=== PATIENT | female | born 1965 | race Caucasian/White ===

== ENCOUNTER → 2019-03-19 | Outpatient (CLI) | payer OTHER | LOC: ORTHO 09:06 | PROVIDERS: ATTEND Orthopaedic Surgery | DX: M17.12 Unilateral primary osteoarthritis, left knee (principal); M23.242 Derangement of anterior horn of lateral meniscus due to old tear or injury, left knee; M06.862 Other specified rheumatoid arthritis, left knee; Z90.49 Acquired absence of other specified parts of digestive tract | CPT/HCPCS: 99203 ==

== ENCOUNTER 2019-10-28 23:18 | Emergency (ER) | payer OTHER ==
[~2019-10-28] VITALS: Ht 160 cm; Wt 133.8 kg
[2019-10-28 23:27] VITALS: BP 194/75
--- NOTE | 2019-10-28 23:37 | ED Lower Extremity ---
General Chief Complaint: Lower Extremity Stated Complaint: RIGHT KNEE PAIN Source: patient Exam Limitations: no limitations History of Present Illness Date Seen by Provider: Oct 28, 2019 Time Seen by Provider: 23:22 Initial Comments The patient is a morbidly obese 53-year-old female who presents for evaluation of right knee pain. She says that about 3 months ago she twisted her knee and has been having pain since that time. She never felt or heard a pop. Then tonight she was letting her dogs out and she reinjured the knee again with a twisting motion. She has been wearing a Velcro knee brace which provides a little relief. She has seen Dr. No from orthopedics in the past but has not followed up with him since she injured the knee. She has no other complaints. She is alert and oriented 4, calm, and appears to be in no distress this time. Onset: other (3 months ago, re-injured today) Severity: moderate Pain/Injury Location: right knee Method of Injury: twisted Modifying Factors: Improves With Immobilization (helps), Improves With Movement (worsens) Allergies and Home Medications Allergies Coded Allergies: No Known Drug Allergies (Unverified , 10/28/19) Patient Home Medication List Home Medication List Reviewed: Yes Review of Systems Constitutional: no symptoms reported EENTM: no symptoms reported Respiratory: no symptoms reported Cardiovascular: no symptoms reported Gastrointestinal: no symptoms reported Genitourinary: no symptoms reported Musculoskeletal: joint pain (right knee injury) Skin: no symptoms reported Psychiatric/Neurological: No Symptoms Reported All Other Systems Reviewed Negative Unless Noted: Yes Past Yuxpgls-[id number]-Fkmbdq Hx Past Med/Social Hx: Reviewed Nursing Past Med/Soc Hx Patient Social History Recent Foreign Travel: No Contact w/Someone Who Travel: No Physical Exam Vital Signs Vital Signs - First Documented 10/28/19 23:27 Temp 36.1 Pulse 84 Resp 20 B/P (MAP) 194/75 (114) Pulse Ox 99 O2 Delivery Room Air Capillary Refill : Height, Weight, BMI Height: '" Weight: lbs. oz. kg; BMI Method: General Appearance: WD/WN, no apparent distress, obese HEENT: PERRL/EOMI, normal ENT inspection Cardiovascular: regular rate, rhythm, no edema, no JVD Respiratory: normal breath sounds, no respiratory distress, no accessory muscle use Hips: bilateral hip non-tender, bilateral hip normal inspection, bilateral hip normal range of motion, bilateral hip no evidence of injury Legs: bilateral leg non-tender, bilateral leg normal inspection, bilateral leg normal range of motion, bilateral leg no evidence of injury Knees: right knee soft tissue tenderness (anteriorly and laterally) Ankles: bilateral ankle non-tender, bilateral ankle normal inspection, bilateral ankle normal range of motion, bilateral ankle no evidence of injury Feet: bilateral foot non-tender, bilateral foot normal inspection, bilateral foot normal range of motion, bilateral foot no evidence of injury Neurologic/Tendon: normal sensation, normal motor functions, normal tendon functions 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 Advised the patient to continue wearing her knee brace and to follow up with orthopedics in the next 1-2 days. Explained the patient that she will likely require an outpatient MRI for further imaging of the inside of her knee. The pa tient expresses verbal understanding and agreement with the plan and is stable for discharge. Departure Impression Primary Impression: Injury of right knee Disposition: 01 HOME, SELF-CARE Condition: Stable Departure-Patient Inst. Decision time for Depature: 23:59 Referrals: PAKO NO MD, AMANDA S APRN (PCP) Primary Care Physician Patient Instructions: Knee Pain (DC) Add. Discharge Instructions: Follow-up with Dr. No orthopedics in the next 1-2 days. Take the prescribed medicine instructed. Return to the emergency department for new or worsening symptoms. Scripts Hydrocodone/Acetaminophen (Hydrocodone-Acetamin 5-325 mg) 1 Each Tablet 1 EACH PO Q4H for Pain for 5 Days, #15 TAB Prov: LAMINE LEACH DO 10/29/19 LAMINE LEACH DO Oct 28, 2019 23:37
[2019-10-29] MEDS ORDERED: HYDR-3812 PO
--- NOTE | 2019-10-29 06:09 | Diagnostic Imaging Report ---
INDICATION: Right knee injury with pain. AP, oblique and lateral views of the right knee are obtained. FINDINGS: Mild degenerative spurring is seen in the medial compartment of the knee. No acute fracture or dislocation is identified. No abnormal lytic or sclerotic focus is seen, and there is no radiopaque foreign body. IMPRESSION: No acute abnormality. Dictated by: Dictated on workstation # [id number]
== END 2019-10-29 00:03 | disposition home or self-care (01) ==
LOC: EDUNIT# 23:18 → ER FS 23:25
DX: S89.91XA Unspecified injury of right lower leg, initial encounter (principal); E66.01 Morbid (severe) obesity due to excess calories; Z68.43 Body mass index [BMI] 50.0-59.9, adult; X50.1XXA Overexertion from prolonged static or awkward postures, initial encounter
CPT/HCPCS: 73562

== ENCOUNTER → 2021-01-08 | Outpatient (CLI) | payer OTHER ==
[~2021-01-08] VITALS: Ht 162.6 cm; Wt 140.9 kg
[~2021-01-08] MED LIST: ACHD5005 PO; LIDOCAINE 1% INJ 20 ML 20 ML VIAL INJ ONE
--- NOTE | 2021-01-08 12:21 | Diagnostic Imaging Report ---
INDICATION: Left thyroid nodule. Patient presents for FNA using ultrasound guidance. DETAILS OF THE PROCEDURE: The patient was brought to the procedure room and placed on the table in the supine position. Ultrasound imaging of the left neck was performed to evaluate for an appropriate entry site. The left neck was then prepped and draped in the usual sterile fashion. A small amount of 1% lidocaine was utilized for local anesthesia. A total of four passes was made into the dominant peripherally calcified nodule in the lower pole of the left lobe of the thyroid utilizing 25-gauge needles and fine needle aspiration technique. A single pass was made with a Rotex needle and a Rotex biopsy was performed. The needle was withdrawn and hemostasis was obtained. The patient tolerated the procedure well and left the Department in stable condition. IMPRESSION: Successful ultrasound guided fine needle aspiration and Rotex biopsy of the dominant peripherally calcified nodule in the lower pole of the left lobe of the thyroid. Pathology results are currently pending. Dictated by: Dictated on workstation # [id number]
== END ==
LOC: RAD 11:00
PROVIDERS: ATTEND Surgery
DX: E04.1 Nontoxic single thyroid nodule (principal)
CPT/HCPCS: 10005

== ENCOUNTER → 2023-01-16 | Outpatient (CLI) | payer OTHER ==
[~2023-01-16] VITALS: Ht 162.6 cm; Wt 134.0 kg
[~2023-01-16] MED LIST changes: +LIDOCAINE 1% INJ 10 ML VIAL INJ ONE; +LIDOCAINE 1% INJ 10 ML VIAL ONE; -LIDOCAINE 1% INJ 20 ML 20 ML VIAL INJ ONE
--- NOTE | 2023-01-16 15:07 | Diagnostic Imaging Report ---
INDICATION: Left thyroid mass. Patient presents for ultrasound-guided fine-needle aspiration. Patient brought to the procedure room placed on table in the supine position. Ultrasound imaging of the neck was performed to evaluate appropriate entry site. Neck was then prepped and draped in usual sterile fashion. Small amount of 1% lidocaine was utilized for local anesthesia. A total of 4 passes were made into the dominant mass in the lower pole left lobe of thyroid utilizing 25-gauge needles and fine-needle aspiration technique. Needle was removed and hemostasis was obtained. Patient tolerated the procedure well and left the department in stable condition. IMPRESSION: Successful ultrasound guided fine-needle aspiration of the dominant solid mass lower pole left lobe of thyroid. Pathology results are currently pending. Dictated by: Dictated on workstation # [id number]
== END ==
LOC: RAD 12:35
PROVIDERS: ATTEND Nurse Practitioner Family
DX: E04.1 Nontoxic single thyroid nodule (principal)